=== PATIENT | male | born 2000 | race Caucasian/White ===

== ENCOUNTER 2024-02-09 00:36 | Emergency (ER) | payer BC, SELFPAY ==
[2024-02-09] VITALS (8 sets, daily range): BP systolic 114–153; BP diastolic 64–89; PULSE 68–103; RESP 19–26; TEMP 37.2; O2SAT 91–97; BMI 37.5
--- NOTE | 2024-02-09 00:54 | CTR_ITS ---
PROCEDURE INFORMATION: Exam: CT Head Without Contrast Exam date and time: 02/09/2024 1:06 AM Age: 23 years old Clinical indication: Patient HX: Patient had witnessed seizure activity while asleep in bed. No prior history of seizures. ; Additional info: Sz TECHNIQUE: Imaging protocol: Computed tomography of the head without contrast. Radiation optimization: All CT scans at this facility use at least one of these dose optimization techniques: automated exposure control; mA and/or kV adjustment per patient size (includes targeted exams where dose is matched to clinical indication); or iterative reconstruction. COMPARISON: No relevant prior studies available. RADIATION DOSE METRICS: Total DLP (mGy-cm): 1068.53 FINDINGS: Brain: There is a relatively large hypodensity in the frontoparietal region with some heterogeneity but no definite findings of acute hemorrhage. There appears to be vasogenic edema with very minimal hfnhk-jl-qpif mass effect on the interhemispheric falx (series 4, image 42). Cerebral ventricles: No ventriculomegaly. Paranasal sinuses: Paranasal sinus mucosal thickening. Mastoid air cells: Visualized mastoid air cells are well aerated. Bones: Unremarkable. No acute fracture. Soft tissues: Unremarkable. CT/CT head wo con* [id number] IMPRESSION: Incompletely evaluated relatively large region hypodensity in the right frontoparietal region with what appears to be associated vasogenic edema resulting in very minimal ivqrk-up-losy mass effect. An underlying mass cannot be excluded. Recommend further evaluation with contrast enhanced CT and MRI. THIS REPORT CONTAINS FINDINGS THAT MAY BE CRITICAL TO PATIENT CARE. The findings were verbally communicated Via telephone conference with SABRINA CONTRERAS at 1:30 AM TELEPATHIST on 02/09/2024. The findings were acknowledged and understood.
--- NOTE | 2024-02-09 00:55 | ECG_ITS ---
[facility] Test Date: 2024-02-09 Pat Name: Siena Morales Department: Room: Gender: Male [employer] Taper: : 2000 Requested By: Ton Flanenry Order Number: [id number] Felix MD: RYDER MADRID Measurements Intervals [place] Rate: 89 P: 55 ME: 140 QRS: 67 QRSD: 94 T: 45 QT: 349 QTc: 425 Interpretive Statements SINUS RHYTHM NONSPECIFIC T-WAVE ABNORMALITY No previous ECG available for comparison Electronically Signed On 02-09-2024 16:07:33 ACTUARIAL DIRECTOR by RYDER MADRID [email or web address]
--- NOTE | 2024-02-09 00:56 | W.ED.SEIZURE ---
Documented by User: Ton Banegas, 02/10/24 23:45 HPI - Seizure General: Chief Complaint: Seizure Stated Complaint: seizure Time Seen by Provider: 02/09/24 00:39 History of Present Illness: HPI Narrative: 23-year-old male patient with no prior history of seizure disorder. Evidently, he woke his in bed having a seizure this morning. The patient does not remember the episode. He does remember EMS arriving and waking mild. He states that he has not felt well all day. He had some diarrhea. No vomiting. No fevers that he knows of. He stayed in bed most of the day due to not feeling well. No sick contacts. No new medications. Related Data Home Medications Medication Instructions Recorded Confirmed acetaminophen 325 mg tablet 650 mg PO QID PRN pain or fever 02/09/24 02/09/24 (Tylenol) fluticasone 250 mcg-salmeterol 50 1 ea inhalation BID 02/09/24 02/09/24 mcg/dose blistr powdr for inhalation Previous Rx's Medication Instructions Recorded levetiracetam 750 mg tablet 750 mg PO Q12H #60 tabs 02/09/24 (Keppra) Allergies Allergy/AdvReac Type Severity Reaction Status Date / Time No Known Allergies Allergy Unverified 02/09/24 00:52 Physical Exam Const: COMMON NORMALS: no acute distress and alert GENERAL APPEARANCE: cooperative; not ill appearing and not frail appearing HENMT: COMMON NORMALS: normocephalic, atraumatic and Normal external nose present HEAD & SCALP: normocephalic and atraumatic FACE & SINUS: normal facial exam and face symmetric NOSE: Normal external nose present Eye: COMMON NORMALS: Equal, round and reactive pupils present and EOMs intact bilaterally PUPIL: Yes Equal, round and reactive pupils present Neck/C-Spine: GENERAL: Yes trachea midline Chest: CHEST: Yes Symmetrical chest wall rise Resp: COMMON NORMALS: normal respiratory effort, No retractions, No use of accessory muscles and clear to auscultation bilaterally AUSCULTATION: clear to auscultation bilaterally Cardio: COMMON NORMALS: regular rate and regular rhythm RATE: regular rate RHYTHM: regular rhythm GI: COMMON NORMALS: Normal to inspection, nondistended, normoactive bowel sounds present Extremity: COMMON NORMALS: no pedal edema Neuro: HANNY COMA SCALE: document GCS findings Hanny coma scale eye opening: Spontaneous [place] coma scale verbal response: Orientated [place] coma scale motor response: Obey commands Hanny coma scale total score: 15 SENSORIUM/ORIENTATION: Yes alert CRANIAL NERVES: Yes CN normal except as noted COORDINATION/BALANCE: aolqfh-rs-drbz test normal and tafd-kc-tbor test normal SPEECH: speech normal SENSORY EXAM: Yes extremities (intact) MOTOR EXAM: Pronator motor function not present, Normal motor muscle tone present throughout and Motor abnormalities not present COORDINATION: cacmob-gs-dcfh test normal and tflo-wr-gewf test normal Psych: COMMON NORMALS: speech normal SPEECH: Yes normal speech Skin: COMMON NORMALS: no rashes or lesions noted GENERAL SKIN EXAM: no rashes or lesions noted Course Vital Signs: Vital signs: Vital Signs Temperature 98.9 F 02/09/24 00:43 Pulse Rate 87 02/09/24 09:28 Respiratory Rate 19 H 02/09/24 04:22 Blood Pressure 139/86 02/09/24 09:28 Pulse Oximetry 94 02/09/24 09:28 Oxygen Delivery Me thod Room Air 02/09/24 08:20 MDM - Seizure MDM Narrative Medical decision making narrative: 23-year-old male with new onset seizure at home. He has essentially recovered. No repeated episodes of seizure here. Vitals are stable. CBC is normal. BMP shows a sodium of 133, otherwise not remarkable. Magnesium and phosphorus are normal. Liver enzymes are nonremarkable. His CRP is 45. Urine drug screen is negative. COVID flu and RSV swabs are negative. Ethyl alcohol is less than 10. Urinalysis is negative for infection. Patient's head CT shows significant heterogeneous hypodensity at the right frontal parietal region at the brain. Differential diagnosis includes subacute or chronic stroke/infarct, versus congenital malformation. There is not appear to be active bleeding or swelling. There is no midline shift. MRI is suggested. Spoke with neurology regarding this patient and CT findings. Recommendations are to load with 1 g of Keppra. Placed him on oral Keppra 750 twice daily, and obtain MRI scan this morning. He will be checked out at shift change for follow-up on MRI results, and further management per neurology. Lab Data 02/09/24 02:35 02/09/24 02:35 Labs: Radiology Impressions Head CT 02/09/24 01:30 IMPRESSION: No apparent intracranial mass or obvious vascular lesion. The heterogeneous hypodensity at the right frontoparietal region may represent age indeterminate infarct, possibly acute on subacute or chronic given clinical presentation. Recommend further evaluation with MRI as prior exam suggested. Head MRI 02/09/24 03:56 IMPRESSION: 1. Large heterogeneous mass without significant enhancement centered in the posterior RIGHT frontal parietal region abutting the interhemispheric falx, central sulcus and causing mild deformity of the corpus callosum and RIGHT lateral ventricle. Mass measures 5.5 x 3.2 x 5.1 cm. No diffusion restriction. Most consistent with a primary neoplasm/astrocytoma. Neurosurgical evaluation recommended. 2. No additional mass or prior infarct. 3. Mild paranasal sinus disease. Laboratory Results WBC 6.93 10^3/uL (3.29-11.43) 02/09/24 02:35 RBC 4.84 10^6/uL (3.85-5.65) 02/09/24 02:35 Hgb 14.50 g/dL (11.27-16.99) 02/09/24 02:35 Hct 41.7 % (37-53) 02/09/24 02:35 MCV 86.2 fl (82-101) 02/09/24 02:35 MCH 30.0 pg (27-33) 02/09/24 02:35 MCHC 34.8 g/dL (30-55) 02/09/24 02:35 RDW 12.0 % (12.1-15.1) L 02/09/24 02:35 Plt Count 164 10^3/cmm (157-399) 02/09/24 02:35 MPV 9.0 fL (7.4-10.4) 02/09/24 02:35 Neut % (Auto) 71.7 % 02/09/24 02:35 Lymph % (Auto) 19.2 % 02/09/24 02:35 [place] % (Auto) 8.2 % 02/09/24 02:35 Eos % (Auto) 0.3 % 02/09/24 02:35 Baso % (Auto) 0.3 % 02/09/24 02:35 Neut # (Auto) 4.97 10^3/uL (1.8-7.7) 02/09/24 02:35 Lymph # (Auto) 1.3 10^3/uL (0.8-4.8) 02/09/24 02:35 [place] # (Auto) 0.6 10^3/uL (0.2-0.9) 02/09/24 02:35 Eos # (Auto) 0.0 10^3/uL (0.0-0.8) 02/09/24 02:35 Baso # (Auto) 0.0 10^3/uL (0.0-0.1) 02/09/24 02:35 Nucleated RBC % (auto) 0 % 02/09/24 02:35 Nucleated RBCs # 0.0 /100WBC 02/09/24 02:35 Sodium 133 mmol/L (136-145) L 02/09/24 02:35 Potassium 3.7 mmol/L (3.5-5.1) 02/09/24 02:35 Chloride 98 mmol/L (98-107) 02/09/24 02:35 Carbon Dioxide 22 mmol/L (22-29) 02/09/24 02:35 Anion Gap 16.7 (5-19) 02/09/24 02:35 BUN 7 mg/dL (6-20) 02/09/24 02:35 Creatinine 0.8 mg/dL (0.7-1.2) 02/09/24 02:35 GFR Calculation 120.9 mL/min (90-130) 02/09/24 02:35 Glucose 132 mg/dL (65-115) H 02/09/24 02:35 Calculated Osmolality 276 mOsm/kg (285-295) L 02/09/24 02:35 Calcium 8.7 mg/dL (8.5-10.5) 02/09/24 02:35 Phosphorus 3.0 mg/dL (2.5-4.5) 02/09/24 02:35 Magnesium 1.9 mg/dL (1.7-2.3) 02/09/24 02:35 Total Bilirubin 1.1 mg/dL (0.15-1.2) 02/09/24 02:35 AST 20 U/L (0-40) 02/09/24 02:35 ALT 33 U/L (0-41) 02/09/24 02:35 Alkaline Phosphatase 50 U/L (40-130) 02/09/24 02:35 C-Reactive Protein 45.1 mg/L (0.0-4.9) H 02/09/24 02:35 Total Protein 6.4 g/dL (6.6-8.7) L 02/09/24 02:35 Albumin 4.2 g/dL (3.5-5.2) 02/09/24 02:35 Globulin 2.2 g/dL (1.3-4.6) 02/09/24 02:35 Lipase 21 U/L (13-60) 02/09/24 02:35 Urine Color Yellow (Yellow) 02/09/24 01:29 Urine Appearance Turbid (CLEAR) A 02/09/24 01: Urine pH 5.5 (5-7) 02/09/24: Ur Specific [place] 1.027 (1.005-1.030) 02/09/24 01: Urine Protein 1+ (Negative) A 02/09/24 01: Urine Glucose (UA) Negative (Normal) 02/09/24 01: Urine Ketones Negative (Negative) 02/09/24 01: Urine Blood Negative (Negative) 02/09/24 01: Urine Nitrate Negative (Negative) 02/09/24 01: Urine Bilirubin Negative (Negative) 02/09/24 01: Urine Urobilinogen 1.0 mg/dL (Negative) 02/09/24 01: Ur Leukocyte Esterase Negative (Negative) 02/09/24 01:29 Urine RBC 0-4 /hpf (0-2) H 02/09/24 01:29 Urine WBC 0-4 /hpf (0-5) H 02/09/24 01:29 Ur Squamous Epith Cells 0-4 /hpf (0-5) H 02/09/24 01:29 Amorphous Sediment 3+ /hpf 02/09/24 01:29 Urine Bacteria Trace /hpf (NONE) 02/09/24 01: Urine Opiates Screen Negative ng/mL (Negative) 02/09/24: Ur Barbiturates Screen Negative ng/mL (Negative) 02/09/24 01: Ur Phencyclidine Scrn Negative ng/mL (Negative) 02/09/24 01: Ur Amphetamines Screen Negative ng/mL (Negative) 02/09/24 01: U Benzodiazepines Scrn Negative ng/mL (Negative) 02/09/24 01:29 Urine Cocaine Screen Negative ng/mL (Negative) 02/09/24 01:29 U Marijuana (THC) Screen Negative ng/mL (Negative) 02/09/24 01:29 Ethyl Alcohol < 10 mg/dL (0-10) 02/09/24 02:35 Coronavirus (PCR) Negative (Negative) 02/09/24 01:29 Influenza A (PCR) Negative (Negative) 02/09/24 01:29 Influenza Type B (PCR) Negative (Negative) 02/09/24 01:29 RSV (PCR) Negative (Negative) 02/09/24 01:29 All radiology interpretation(s) finalized by discharge Discharge Plan Discharge Patient Disposition: Home Clinical Impression: Generalized seizure Condition: Stable Prescriptions: New levetiracetam [Keppra] 750 mg tablet 750 mg PO Q12H Qty: 60 0RF No Action fluticasone propion-salmeterol 250-50 mcg/dose blister with device 1 ea INHALATION BID acetaminophen [Tylenol] 325 mg Tablet 650 mg PO QID PRN (Reason: pain or fever) Discharge Orders: Discharge ED (Routine); Ordered 02/09/24 Ordered By: Nikolas Loya Patient Instructions: New-Onset Seizure in Adults (ED), Opioid Safety, Pain Management Activity Restrictions/Additional Instructions: Thank you for choosing [facility] for your healthcare needs today. It is very important that you follow up as instructed or that you return to the Emergency Department should you have concerns or if your condition changes or worsens in any way. You were seen in the emergency room after a seizure. Imaging shows that there is a mass in the brain in the right frontal parietal region. There is a small amount of swelling around the mass measures 5.5 x 3.2 x 5.[address]s and MRI of your head that were done in the emergency room were reviewed by Dr. Raza the neurosurgeon at [facility] in [place]. You will need to see him for definitive care for this but he did not feel it was emergent at this time since you had recovered well from your seizure. Recommend that you start on oral seizure medications Keppra 750 mg 1 pill twice a day. Dr. Raza's office will contact you for an initial consultation and discussion of treatment options sometime this week. Dr. Raza [address] [address] Phone:? Sign Out Sign Out Data: Patient Sign Out occurred on 02/09/24 at 06:22. Patient's care was discussed, and care was transferred from Ton Banegas DO to Nikolas Loya DO. Coding Level of Care Code ED Loss Prevention Representative for Chg Fwd Documented by User: Nikolas Loya DO 02/11/24 06:13 HPI - Seizure General: Chief Complaint: Seizure Stated Complaint: seizure Time Seen by Provider: 02/09/24 00:39 Related Data Home Medications Medication Instructions Recorded Confirmed acetaminophen 325 mg tablet 650 mg PO QID PRN pain or fever 02/09/24 02/09/24 (Tylenol) fluticasone 250 mcg-salmeterol 50 1 ea inhalation BID 02/09/24 02/09/24 mcg/dose blistr powdr for inhalation Previous Rx's Medication Instructions Recorded levetiracetam 750 mg tablet 750 mg PO Q12H #60 tabs 02/09/24 (Keppra) Allergies Allergy/AdvReac Type Severity Reaction Status Date / Time No Known Allergies Allergy Unverified 02/09/24 00:52 Physical Exam Neuro: HANNY COMA SCALE: document GCS findings [place] coma scale total score: 15 Course Vital Signs: Vital signs: Vital Signs Temperature 98.9 F 02/09/24 00:43 Pulse Rate 87 02/09/24 09:28 Respiratory Rate 19 H 02/09/24 04:22 Blood Pressure 139/86 02/09/24 09:28 Pulse Oximetry 94 02/09/24 09:28 Oxygen Delivery Me thod Room Air 02/09/24 08:20 MDM - Seizure MDM Narrative Medical decision making narrative: 23-year-old male with new onset seizure at home. He has essentially recovered. No repeated episodes of seizure here. Vitals are stable. CBC is normal. BMP shows a sodium of 133, otherwise not remarkable. Magnesium and phosphorus are normal. Liver enzymes are nonremarkable. His CRP is 45. Urine drug screen is negative. COVID flu and RSV swabs are negative. Ethyl alcohol is less than 10. Urinalysis is negative for infection. Patient's head CT shows significant heterogeneous hypodensity at the right frontal parietal region at the brain. Differential diagnosis includes subacute or chronic stroke/infarct, versus congenital malformation. There is not appear to be active bleeding or swelling. There is no midline shift. MRI is suggested. Spoke with neurology regarding this patient and CT findings. Recommendations are to load with 1 g of Keppra. Placed him on oral Keppra 750 twice daily, and obtain MRI scan this morning. He will be checked out at shift change for follow-up on MRI results, and further management per neurology. Care assumed at change of shift. MRI shows what appears to be a neoplasm consistent with what was seen in the CT. Discussed with neurology surgeon at [facility] transaction advisory services manager. Dr. Jameson. He does not feel the patient needs to be transferred emergently but will see the patient in his office tomorrow over the following day and make arrangements for definitive care discussed with family they are in agreement discharged home on Keppra. Lab Data 02/09/24 02:35 02/09/24 02:35 Labs: Radiology Impressions Head CT 02/09/24 01:30 IMPRESSION: No apparent intracranial mass or obvious vascular lesion. The heterogeneous hypodensity at the right frontoparietal region may represent age indeterminate infarct, possibly acute on subacute or chronic given clinical presentation. Recommend further evaluation with MRI as prior exam suggested. Head MRI 02/09/24 03:56 IMPRESSION: 1. Large heterogeneous mass without significant enhancement centered in the posterior RIGHT frontal parietal region abutting the interhemispheric falx, central sulcus and causing mild deformity of the corpus callosum and RIGHT lateral ventricle. Mass measures 5.5 x 3.2 x 5.1 cm. No diffusion restriction. Most consistent with a primary neoplasm/astrocytoma. Neurosurgical evaluation recommended. 2. No additional mass or prior infarct. 3. Mild paranasal sinus disease. Laboratory Results WBC 6.93 10^3/uL (3.29-11.43) 02/09/24 02:35 RBC 4.84 10^6/uL (3.85-5.65) 02/09/24 02:35 Hgb 14.50 g/dL (11.27-16.99) 02/09/24 02:35 Hct 41.7 % (37-53) 02/09/24 02:35 MCV 86.2 fl (82-101) 02/09/24 02:35 MCH 30.0 pg (27-33) 02/09/24 02:35 MCHC 34.8 g/dL (30-55) 02/09/24 02:35 RDW 12.0 % (12.1-15.1) L 02/09/24 02:35 Plt Count 164 10^3/cmm (157-399) 02/09/24 02:35 MPV 9.0 fL (7.4-10.4) 02/09/24 02:35 Neut % (Auto) 71.7 % 02/09/24 02:35 Lymph % (Auto) 19.2 % 02/09/24 02:35 [place] % (Auto) 8.2 % 02/09/24 02:35 Eos % (Auto) 0.3 % 02/09/24 02:35 Baso % (Auto) 0.3 % 02/09/24 02:35 Neut # (Auto) 4.97 10^3/uL (1.8-7.7) 02/09/24 02:35 Lymph # (Auto) 1.3 10^3/uL (0.8-4.8) 02/09/24 02:35 [place] # (Auto) 0.6 10^3/uL (0.2-0.9) 02/09/24 02:35 Eos # (Auto) 0.0 10^3/uL (0.0-0.8) 02/09/24 02:35 Baso # (Auto) 0.0 10^3/uL (0.0-0.1) 02/09/24 02:35 Nucleated RBC % (auto) 0 % 02/09/24 02:35 Nucleated RBCs # 0.0 /100WBC 02/09/24 02:35 Sodium 133 mmol/L (136-145) L 02/09/24 02:35 Potassium 3.7 mmol/L (3.5-5.1) 02/09/24 02:35 Chloride 98 mmol/L (98-107) 02/09/24 02:35 Carbon Dioxide 22 mmol/L (22-29) 02/09/24 02:35 Anion Gap 16.7 (5-19) 02/09/24 02:35 BUN 7 mg/dL (6-20) 02/09/24 02:35 Creatinine 0.8 mg/dL (0.7-1.2) 02/09/24 02:35 GFR Calculation 120.9 mL/min (90-130) 02/09/24 02:35 Glucose 132 mg/dL (65-115) H 02/09/24 02:35 Calculated Osmolality 276 mOsm/kg (285-295) L 02/09/24 02:35 Calcium 8.7 mg/dL (8.5-10.5) 02/09/24 02:35 Phosphorus 3.0 mg/dL (2.5-4.5) 02/09/24 02:35 Magnesium 1.9 mg/dL (1.7-2.3) 02/09/24 02:35 Total Bilirubin 1.1 mg/dL (0.15-1.2) 02/09/24 02:35 AST 20 U/L (0-40) 02/09/24 02:35 ALT 33 U/L (0-41) 02/09/24 02:35 Alkaline Phosphatase 50 U/L (40-130) 02/09/24 02:35 C-Reactive Protein 45.1 mg/L (0.0-4.9) H 02/09/24 02:35 Total Protein 6.4 g/dL (6.6-8.7) L 02/09/24 02:35 Albumin 4.2 g/dL (3.5-5.2) 02/09/24 02:35 Globulin 2.2 g/dL (1.3-4.6) 02/09/24 02:35 Lipase 21 U/L (13-60) 02/09/24 02:35 Urine Color Yellow (Yellow) 02/09/24 01:29 Urine Appearance Turbid (CLEAR) A 02/09/24 01: Urine pH 5.5 (5-7) 02/09/24 01:29 Ur Specific [place] 1.027 (1.005-1.030) 02/09/24 01:29 Urine Protein 1+ (Negative) A 02/09/24 01: Urine Glucose (UA) Negative (Normal) 02/09/24 01:29 Urine Ketones Negative (Negative) 02/09/24 01: Urine Blood Negative (Negative) 02/09/24 01: Urine Nitrate Negative (Negative) 02/09/24 01: Urine Bilirubin Negative (Negative) 02/09/24 01: Urine Urobilinogen 1.0 mg/dL (Negative) 02/09/24 01:29 Ur Leukocyte Esterase Negative (Negative) 02/09/24 01: Urine RBC 0-4 /hpf (0-2) H 02/09/24 01:29 Urine WBC 0-4 /hpf (0-5) H 02/09/24 01:29 Ur Squamous Epith Cells 0-4 /hpf (0-5) H 02/09/24 01: Amorphous Sediment 3+ /hpf 02/09/24 01: Urine Bacteria Trace /hpf (NONE) 02/09/24 01: Urine Opiates Screen Negative ng/mL (Negative) 02/09/24 01: Ur Barbiturates Screen Negative ng/mL (Negative) 02/09/24 01:29 Ur Phencyclidine Scrn Negative ng/mL (Negative) 02/09/24 01:29 Ur Amphetamines Screen Negative ng/mL (Negative) 02/09/24 01: U Benzodiazepines Scrn Negative ng/mL (Negative) 02/09/24 01: Urine Cocaine Screen Negative ng/mL (Negative) 02/09/24 01:29 U Marijuana (THC) Screen Negative ng/mL (Negative) 02/09/24 01:29 Ethyl Alcohol < 10 mg/dL (0-10) 02/09/24 02:35 Coronavirus (PCR) Negative (Negative) 02/09/24 01:29 Influenza A (PCR) Negative (Negative) 02/09/24 01:29 Influenza Type B (PCR) Negative (Negative) 02/09/24 01:29 RSV (PCR) Negative (Negative) 02/09/24 01: Discharge Plan Discharge Patient Disposition: Home Clinical Impression: Generalized seizure Condition: Stable Prescriptions: New levetiracetam [Keppra] 750 mg tablet 750 mg PO Q12H Qty: 60 0RF No Action fluticasone propion-salmeterol 250-50 mcg/dose blister with device 1 ea INHALATION BID acetaminophen [Tylenol] 325 mg Tablet 650 mg PO QID PRN (Reason: pain or fever) Discharge Orders: Discharge ED (Routine); Ordered 02/09/24 Ordered By: Nikolas Loya Patient Instructions: New-Onset Seizure in Adults (ED), Opioid Safety, Pain Management Activity Restrictions/Additional Instructions: Thank you for [facility] your [facility] needs today. It is very important that you follow up as instructed or that you return to the Emergency Department should you have concerns or if your condition changes or worsens in any way. You were seen in the emergency room after a seizure. Imaging shows that there is a mass in the brain in the right frontal parietal region. There is a small amount of swelling around the mass measures 5.5 x 3.2 x 5.[address]s and MRI of your head that were done in the emergency room were reviewed by Dr. Raza the neurosurgeon at [facility] in [place]. You will need to see him for definitive care for this but he did not feel it was emergent at this time since you had recovered well from your seizure. Recommend that you start on oral seizure medications Keppra 750 mg 1 pill twice a day. Dr. Raza's office will contact you for an initial consultation and discussion of treatment options sometime this week. Dr. Raza [address], [place] [address] Phone:? Sign Out Sign Out Data: Patient Sign Out occurred on 02/09/24 at 06:22. Patient's care was discussed, and care was transferred from Ton Banegas DO to Nikolas Loya DO. Coding Level of Care Code ED Loss Prevention Representative for Shay Epps
--- NOTE | 2024-02-09 01:30 | CTR_ITS ---
PROCEDURE INFORMATION: Exam: CT Head With Contrast Exam date and time: 02/09/2024 1:51 AM Age: 23 years old Clinical indication: Other: RT frontoparietal abnormality; Patient HX: Concern for underlying RT frontoparietal mass noted on non con head CT. EMS arrival for seizure activity. No prior seizure history. ; Additional info: R frontoparietal lesion TECHNIQUE: Imaging protocol: Computed tomography of the head with intravenous contrast. Radiation optimization: All CT scans at this facility use at least one of these dose optimization techniques: automated exposure control; mA and/or kV adjustment per patient size (includes targeted exams where dose is matched to clinical indication); or iterative reconstruction. Contrast material: OMNI 350; Contrast volume: 100 ml; Contrast route: INTRAVENOUS (IV); COMPARISON: CT head wo con* [id number] 02/09/2024 1:06 AM RADIATION DOSE METRICS: Total DLP (mGy-cm): 1044.78 FINDINGS: Brain: No apparent intracranial mass or obvious vascular lesion in the right frontoparietal region. No significant midline shift. Cerebral ventricles: Unremarkable. No ventriculomegaly. Bones/joints: Unremarkable. No acute fracture. Paranasal sinuses: Paranasal sinus mucosal thickening. Mastoid air cells: Visualized mastoid air cells are well aerated. Soft tissues: Unremarkable. CT/CT head w con [id number] IMPRESSION: No apparent intracranial mass or obvious vascular lesion. The heterogeneous hypodensity at the right frontoparietal region may represent age indeterminate infarct, possibly acute on subacute or chronic given clinical presentation. Recommend further evaluation with MRI as prior exam suggested.
[2024-02-09 01:45] LABS: Bilirubin Urine Negative (Negative); Blood Urine Negative (Negative); Glucose Urine UA Negative (Normal); Ketones Urine Negative (Negative); Leukocyte Esterase Urine Negative (Negative); Nitrate Urine Negative (Negative); Protein Urine 1+ (Negative); Specific Gravity, Urine 1.027 (1.005-1.030); Urine Appearance Turbid (CLEAR); Urine Color Yellow (Yellow); pH Urine 5.5 (5-7)
[2024-02-09] MEDS: iohexol 350 mg/mL 500 mL Btl (per mL) IV (01:52)
[2024-02-09 01:53] LABS: Amphetamines Screen Urine Negative (Negative); Barbiturates Screen Urine Negative (Negative); Benzodiazepines Screen Urine Negative (Negative); Cocaine Screen Urine Negative (Negative); Opiate Screen Urine Negative (Negative); PCP Screen Urine Negative (Negative); THC Screen Urine Negative (Negative)
[2024-02-09 01:57] LABS: Add Urine Microscopic? YES; Bacteria Urine TRACE /hpf; RBC Urine 0-4 /hpf (0-2); Squamous Epithelial Cell Urine 0-4 /hpf (0-5); WBC Urine 0-4 /hpf (0-5)
[2024-02-09 01:58] LABS: Add Urine Culture? No; Amorphous Sediment Urine 3+ /hpf
[2024-02-09 02:21] LABS: Covid PCR NEGATIVE (Negative); Influenza A NEGATIVE (Negative); Influenza B NEGATIVE (Negative); Respiratory Syncytial Virus Ce NEGATIVE (Negative)
[2024-02-09 02:41] LABS: Basophils % 0.3 %; Eosinophils % 0.3 %; Hematocrit 41.7 % (37-53); Lymphocytes # 1.3 10^3/uL (0.8-4.8); Lymphocytes % 19.2 %; Mean Corpuscular HGB Conc 34.8 g/dL (30-55); Mean Corpuscular Volume 86.2 fl (82-101); Monocytes # 0.6 10^3/uL (0.2-0.9); Monocytes % 8.2 %; Neutrophils # 4.97 10^3/uL (1.8-7.7); Neutrophils % 71.7 %; Nucleated Red Blood Cells % 0 %; Platelet Count 164 10^3/cmm (157-399); Red Blood Count 4.84 10^6/uL (3.85-5.65); White Blood Count 6.93 10^3/uL (3.29-11.43)
[2024-02-09 03:19] LABS: Alanine Aminotransferase 33 U/L (0-41); Albumin Level 4.2 g/dL (3.5-5.2); Alkaline Phosphatase 50 U/L (40-130); Aspartate Amino Transferase 20 U/L (0-40); Blood Urea Nitrogen 7 mg/dL (6-20); C Reactive Protein 45.1 mg/L (0.0-4.9); Calcium 8.7 mg/dL (8.5-10.5); Carbon Dioxide 22 mmol/L (22-29); Chloride 98 mmol/L (98-107); Creatinine Clr Calc Pharmacy 170.4543; Globulin 2.2 g/dL (1.3-4.6); Glomerular Filtration Rate 120.9 mL/min (90-130); Glucose 132 mg/dL (65-115); Lipase 21 U/L (13-60); Magnesium 1.9 mg/dL (1.7-2.3); Osmolality Calculated 276 mOsm/kg (285-295); Sodium 133 mmol/L (136-145); Total Bilirubin 1.1 mg/dL (0.15-1.2); Total Protein 6.4 g/dL (6.6-8.7)
[2024-02-09 03:20] LABS: Alcohol Level < 10 mg/dL (0-10); Anion Gap 16.7 (5-19); Potassium 3.7 mmol/L (3.5-5.1)
--- NOTE | 2024-02-09 03:56 | MR_ITS ---
WS: [id number] MRI BRAIN WITH AND WITHOUT CONTRAST HISTORY: right frontoparietal lesion, seizure COMPARISON: CT head 02/09/2024 TECHNIQUE: Multiplanar imaging performed through the brain with MultiHance 20 ml's IV. There is a large intracranial mass centered in the posterior RIGHT frontoparietal region with mass ef fect upon the adjacent sulci and extending inferiorly to abut the posterior mid body of the corpus ca llosum. Mass does involve the cortex and central sulcus. Mass distorts the RIGHT lateral ventricle. M ass also extends to about the superior sagittal sinus with minimal distortion. No hydrocephalus. Mass is predominantly of decreased signal although mixed on the T1 sequences. Increased signal on the T2 sequences. No restricted diffusion. No hemorrhage. Mass does abut and extend along the interhemispher ic falx. Mass extends 5.5 cm anterior posterior by 3.2 cm transverse by 5.1 cm superior to inferior. On the postcontrast imaging there is not a significant amount of enhancement. No dural tail is identi fied. No additional masses. No additional masses or signal abnormalities. No prior infarct. No additional areas of enhancement. Paranasal sinuses: Mucoperiosteal thickening throughout the sinuses. No air-fluid levels. Mastoid air cells: Normal. Calvarium and scalp: Normal. MR/MR head wo/w con [id number] IMPRESSION: 1. Large heterogeneous mass without significant enhancement centered in the po sterior RIGHT frontal parietal region abutting the interhemispheric falx, centr al sulcus and causing mild deformity of the corpus callosum and RIGHT lateral v entricle. Mass measures 5.5 x 3.2 x 5.1 cm. No diffusion restriction. 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 Neurosurgical evaluation recommende d. 2. No additional mass or prior infarct. 3. Mild paranasal sinus disease.
[2024-02-09] MEDS: levETIRAcetam 1,000 MG/100 ML PREMIX 400 MG IV (04:21)
[2024-02-09] MEDS: gadobenate dimeglumine 20 mL vial IV (07:45)
== END 2024-02-09 09:29 | disposition home or self-care (01) ==
PROVIDERS: Emergency Medicine; Emergency Provider Family Medicine
DX: R56.9 Unspecified convulsions (principal); R93.0 Abnormal findings on diagnostic imaging of skull and head, not elsewhere classified
CPT/HCPCS: 0241U; 70450; 70460; 70553; 80053; 80306; 80307; 81001; 83690; 83735; 84100; 85025; 86140; 93005; 96365; 99285; J1953

== ENCOUNTER 2024-03-22 16:05 | Emergency (ER) | payer BC, OTHER, SELFPAY ==
[2024-03-22 16:28] VITALS: BP 127/81; PULSE 96; TEMP 37.5; O2SAT 97; BMI 38.3
--- NOTE | 2024-03-22 16:38 | USR_ITS ---
PROCEDURE INFORMATION: Exam: US Duplex Left Lower Extremity Veins, Limited Exam date and time: 03/22/2024 5:02 PM Age: 23 years old Clinical indication: Pain; Leg, lower; Left; Additional info: Leg pain TECHNIQUE: Imaging protocol: Real-time duplex ultrasound of the left extremity with 2-D carcamo scale, color Doppler flow and spectral waveform analysis including responses to compression and other maneuvers (when performed) with image documentation. Limited exam focused on the left lower extremity veins. COMPARISON: No relevant prior studies available. FINDINGS: Left deep veins: Unremarkable. The common femoral, femoral, proximal profunda femoral and popliteal veins as well as the visualized deep veins of the lower leg are patent without thrombus. Normal Doppler waveforms. Normal compressibility and/or augmentation response. Superficial veins: Greater saphenous vein at the saphenofemoral junction is patent without thrombus. Soft tissues: Unremarkable. US/[place] [id number] IMPRESSION: No evidence of deep vein thrombosis.
--- NOTE | 2024-03-22 17:36 | ED_ITS ---
HPI - Extremity Problem General: Chief complaint: Extremity Problem,Nontraumatic Stated complaint: complication post brain surgery Time Seen by Provider: 03/22/24 17:32 History of Present Illness: 23-year-old male presents to the emergen cy room complaining of swelling in his left calf that began today. He denies any chest pain or shortness of breath in March 08 he had craniotomy to resect a right frontal tumor. He has had some mild right-sided weakness since that episode. He denies any fever sweats chills no chest pain or shortness of breath Associated symptoms: Deny chest pain, fever(s) or rash Related Data Home Medications Medication Instructions Recorded Confirmed acetaminophen 325 mg tablet 650 mg PO QID PRN pain or fever 02/09/24 02/09/24 (Tylenol) fluticasone 250 mcg-salmeterol 50 1 ea inhalation BID 02/09/24 02/09/24 mcg/dose blistr powdr for inhalation Previous Rx's Medication Instructions Recorded levetiracetam 750 mg tablet 750 mg PO Q12H #60 tabs 02/09/24 (Keppra) Allergies Allergy/AdvReac Type Severity Reaction Status Date / Time No Known Allergies Allergy Verified 03/22/24 16:34 Review of Systems Const: Denies: fever(s) or chills Card: Denies: chest pain Resp: Denies: dyspnea GI: Denies: abdominal pain : Denies: dysuria, urinary frequency or urinary urgency Musc: Reports: extremity pain and extremity swelling; Denies: neck pain or back pain Skin/Breast: Denies: rash Physical Exam Const: COMMON NORMALS: no acute distress GENERAL APPEARANCE: cooperative and comfortable ORIENTATION/CONSCIOUSNESS: Yes awake, Yes oriented to person, Yes oriented to place and Yes oriented to time HENMT: COMMON NORMALS: normocephalic, atraumatic and hearing grossly normal bilaterally HEAD & SCALP: normocephalic and atraumatic Resp: COMMON NORMALS: normal respiratory effort, No retractions, No use of accessory muscles and clear to auscultation bilaterally AUSCULTATION: clear to auscultation bilaterally Cardio: COMMON NORMALS: regular rate, regular rhythm and No murmurs present (Cardio) RATE: regular rate RHYTHM: regular rhythm GI: COMMON NORMALS: Soft to palpation and No hepatosplenomegaly present AUSCULTATION: Yes normoactive bowel sounds PALPATION: Yes Soft to palpation, No Tenderness to palpation present (GI), No Guarding due to palpation present (GI) and Yes No hepatosplenomegaly present Extremity: COMMON NORMALS: normal to inspection, capillary refill normal, no clubbing, cyanosis or edema, no calf tenderness and no pedal edema OTHER: Mild swelling left lower leg positive Homans' sign Examination left knee and ankle no joint effusion full range of motion no ligam entous instability is laxities or deformities Neuro: SENSORIUM/ORIENTATION: Yes oriented to person, Yes oriented to place and Yes oriented to time Skin: COMMON NORMALS: no rashes or lesions noted GENERAL SKIN EXAM: no rashes or lesions noted Course Vital Signs: Vital signs: Vital Signs Temperature 99.5 F 03/22/24 16:28 Pulse Rate 71 03/22/24 18:14 Blood Pressure 131/74 03/22/24 18:14 Pulse Oximetry 98 03/22/24 18:14 Oxygen Delivery Me thod Room Air 03/22/24 16:28 MDM - Extremity (Nontraumatic) Medical Decision Making Venous duplex negative. No sign of joint or bone pathology or deformity patient denies any acute trauma. Will discharge patient home elevate anti- inflammatories as needed. Supportive cares follow-up with primary care if not improving Medical Records I reviewed the patient's medical records. Lab Data I reviewed the patient's lab results. Radiology Impressions Venous Duplex 03/22/24 16:38 IMPRESSION: No evidence of deep vein thrombosis. All radiology interpretation(s) finalized by discharge Discharge Plan Discharge Patient Disposition: Home Clinical Impression: Left leg swelling Condition: Stable Prescriptions: No Action levetiracetam [Keppra] 750 mg tablet 750 mg PO Q12H Qty: 60 0RF fluticasone propion-salmeterol 250-50 mcg/dose blister with device 1 ea INHALATION BID acetaminophen [Tylenol] 325 mg Tablet 650 mg PO QID PRN (Reason: pain or fever) Discharge Orders: Discharge ED (Routine); Ordered 03/22/24 Ordered By: Nikolas Loya Discharge Diet: Usual diet Discharge Activity: Increase activity as tolerated Patient Instructions: Opioid Safety, Pain Management Activity Restrictions/Additional Instructions: Thank you for choosing [facility] for your healthcare needs today. It is very important that you follow up as instructed or that you return to the Emergency Department should you have concerns or if your condition changes or worsens in any way. You were certain emergency room for left lower leg pain. There was no sign of DVT on the ultrasound there is no sign of infection. You can use Tylenol or ibuprofen keep your leg elevated. Coding Level of Care Code ED [employer] for Shay Epps
[2024-03-22 18:04] VITALS: BP 131/74; PULSE 82; O2SAT 96
[2024-03-22 18:14] VITALS: BP 131/74; PULSE 71; O2SAT 98
== END 2024-03-22 18:16 | disposition home or self-care (01) ==
PROVIDERS: Emergency Provider Family Medicine
DX: M79.89 Other specified soft tissue disorders (principal)
CPT/HCPCS: 93971; 99284

== ENCOUNTER 2024-10-22 13:31 | Outpatient (CLI) | payer BC, OTHER, SELFPAY ==
--- NOTE | 2024-10-22 13:39 | MR_ITS ---
WS: [id number] MRI HEAD WITH CONTRAST TECHNIQUE: Sagittal T1, T2 axial, T2 axial FLAIR, axial susceptibility weighted imaging, axial diffusion weighted images, and coronal T2 images were obtained. Pre and post-T1 axial and post T1 coronal images. ADC and FSPGR images. 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 No pathologic enhancement. Nonenhancing T2 signal abnormality along the anterior and lateral margins may be due to treatment related changes however, a small amount of residual tumor in this area not excluded. Recommend continued surveillance. Associated hemosiderin at the resection cavity. No other suspicious intracranial signal abnormalities. Normal posterior fossa. Normal vascular flow voids at the skull base. No extra-axial fluid collections. Paranasal sinuses and mastoid air cells are well aerated. Normal optic chiasm. MR/MR head wo/w con [id number] IMPRESSION: 1. Postoperative changes craniotomy with resection cavity in the RIGHT parasag ittal frontoparietal junction. Postoperative changes are new from previous. 2. Nonenhancing surrounding T2 thickening worse about the anterior and lateral margins with a small amount of increased diffusion signal. Residual nonenhanci ng tumor not excluded. Recommend continued surveillance to evaluate change. 3. No other acute findings
[2024-10-22] MEDS: gadobenate dimeglumine 20 mL vial IV (14:48)
== END 2024-10-22 13:32 | disposition home or self-care (01) ==
LOC: RAD 13:33
PROVIDERS: Visit Provider Internal Medicine Medical Oncology
DX: C71.1 Malignant neoplasm of frontal lobe (principal)
CPT/HCPCS: 70553

== ENCOUNTER 2024-12-08 08:02 | Outpatient (CLI) | payer BC, OTHER, SELFPAY ==
--- NOTE | 2024-12-08 08:08 | MR_ITS ---
WS: [id number] MRI BRAIN WITH AND WITHOUT CONTRAST HISTORY: MALIGNANT ASTROCYTOMA OF FRONTAL LOBE, craniotomy in March 2024. COMPARISON: 10/22/2024, 02/09/2024 TECHNIQUE: Multiplanar imaging performed through the brain with MultiHance 20 ml's IV. Status post RIGHT frontoparietal lobe resection. Resected RIGHT parasagittal mass involving the posterior frontal lobe and the parietal lobe. No enhancement is identified. There is nonenhancing T2 signal persistent greatest along the anterior, inferior and anterior portion of the resection site and extending laterally. As compared to 10/22/2024 the extent of the T2 signal surrounding the resected site appears to have slightly progressed. Area of progression is greatest along the inferior aspect of the resection site. No new area of signal abnormality. The remaining brain is negative. Posterior fossa is negative. Paranasal sinuses: Bilateral mucoperiosteal thickening in the maxillary sinuses. No air-fluid levels. Mastoid air cells: Normal. Calvarium and scalp: Prior craniotomy site towards the RIGHT vertex. MR/MR head wo/w con [id number] IMPRESSION: 1. Status post resection of craniotomy and resection cavity in the RIGHT britt agittal frontoparietal junction. 2. Nonenhancing T2 and FLAIR signal hyperintensity surrounding the resection c avity appears slightly progressed as compared to 10/22/2024. Recommend evaluatio n for possible residual nonenhancing tumor as also suspected on the prior MRI. No enhancing tumor.
[2024-12-08] MEDS: gadobenate dimeglumine 20 mL vial IV (08:48)
== END 2024-12-08 08:03 | disposition home or self-care (01) ==
LOC: RAD 08:03
PROVIDERS: PCP Family Medicine; Visit Provider Internal Medicine Medical Oncology
DX: C71.1 Malignant neoplasm of frontal lobe (principal); J34.89 Other specified disorders of nose and nasal sinuses; Z98.890 Other specified postprocedural states
CPT/HCPCS: 70553

== ENCOUNTER 2025-02-09 07:44 | Outpatient (CLI) | payer BC, OTHER, SELFPAY ==
--- NOTE | 2025-02-09 07:50 | MR_ITS ---
WS: [id number] MRI HEAD WITH CONTRAST TECHNIQUE: Sagittal T1, T2 axial, T2 axial FLAIR, axial susceptibility weighted imaging, axial diffusion weighted images, and coronal T2 images were obtained. Pre and post-T1 axial and post T1 coronal images. ADC and FSPGR images. 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 No pathologic enhancement. Peripheral thick walled nonenhancing T2 signal abnormality about the resection cavity is stable compared to 12/08/2024. No abnormal gadolinium enhancement. Resection cavity has involuted compared to 10/22/2024. No convincing evidence of disease progression. Recommend continued surveillance. Associated hemosiderin at the resection cavity. No restricted diffusion to suggest acute ischemia. Normal posterior fossa. Normal vascular flow voids at the skull base. No extra-axial fluid collections. Normal posterior nasopharynx. Mild mucosal thickening the paranasal sinuses. Mastoid air cells are well aerated. MR/MR head wo/w con [id number] IMPRESSION: 1. No convincing evidence of disease progression. 2. Stable RIGHT frontoparietal resection cavity with thick walled surrounding nonenhancing T2 signal abnormality unchanged compared to previous. Recommend co ntinued surveillance 3. No evidence of increasing edema or mass effect. 4. No abnormal gadolinium enhancement.
[2025-02-09] MEDS: gadobenate dimeglumine 20 mL vial IV (08:34)
== END 2025-02-09 07:45 | disposition home or self-care (01) ==
LOC: RAD 07:46
PROVIDERS: PCP Family Medicine; Visit Provider Internal Medicine Medical Oncology
DX: C71.1 Malignant neoplasm of frontal lobe (principal); Z98.890 Other specified postprocedural states; R93.89 Abnormal findings on diagnostic imaging of other specified body structures
CPT/HCPCS: 70553